=== PATIENT | male | born 1985 | race Caucasian/White ===

== ENCOUNTER 2018-01-12 17:04 | Emergency (ER) | payer MEDICAID ==
[~2018-01-12] VITALS: Ht 182.9 cm; Wt 83.9 kg
[2018-01-12 17:40] VITALS: Ht 182.9 cm; Wt 83.9 kg
[2018-01-12 21:04] LABS: BASOPHIL % 0.2 % (0-2); PLATELET COUNT 194 x10^3mcL (130-400); RED CELL DISTRIBUTION WIDTH 12.7 % (11.5-14.5)
[2018-01-12 21:20] LABS: ALBUMIN 4.1 g/dL (3.4-5.0); ALKALINE PHOSPHATASE 79 U/L (46-116); ALT/SGPT 30 U/L (16-63); AST/SGOT 25 U/L (15-37); BILIRUBIN TOTAL 0.54 mg/dL (0.20-1.00); CALCIUM 9.3 mg/dL (8.5-10.1); CARBON DIOXIDE 29.6 mmol/L (21-32); CHLORIDE SERUM 105 mmol/L (98-107); CREATININE SERUM 1.1 mg/dL (0.7-1.3); GFR1 > 60 mL/min; GLUCOSE SERUM 77 mg/dL (74-106); SODIUM SERUM 143 mmol/L (136-145); TOTAL PROTEIN, SERUM 7.7 g/dL (6.4-8.2)
[2018-01-12 21:22] LABS: POTASSIUM SERUM 2.9 mmol/L (3.5-5.1)
[2018-01-12 22:00] VITALS: BP 115/60
== END 2018-01-12 22:00 | disposition left against medical advice (07) ==
LOC: ED 17:04
PROVIDERS: Emergency Medicine
DX: M25.561 Pain in right knee (principal); R51 Headache; M54.2 Cervicalgia; R07.89 Other chest pain; Z72.89 Other problems related to lifestyle; V49.9XXA Car occupant (driver) (passenger) injured in unspecified traffic accident, initial encounter; Y93.73 Activity, racquet and hand sports; Y92.488 Other paved roadways as the place of occurrence of the external cause; Y99.8 Other external cause status
CPT/HCPCS: G0480; J3010; J7030; Q9967